=== PATIENT | female | born 1965 | race Two or more races ===

== ENCOUNTER → 2019-03-12 | Outpatient (CLI) | payer OTHER ==
--- NOTE | 2019-03-12 15:32 | RADIOLOGY REPORT (SQ) ---
EXAM DESCRIPTION: LUMBAR SPINE COMPLETE COMPLETED DATE/TIME: 03/12/2019 11:13 am REASON FOR STUDY: LOW BACK PAIN M54.5 LOW BACK PAIN COMPARISON: 03/12/2019 NUMBER OF VIEWS: Five views including obliques. TECHNIQUE: AP, lateral, oblique, and sacral radiographic images acquired of the lumbar spine. LIMITATIONS: None. FINDINGS: MINERALIZATION: Normal. SEGMENTATION: Normal. No transitional anatomy. ALIGNMENT: Normal. VERTEBRAE: Maintained height. No fracture or worrisome bone lesion. DISCS: Preserved height. No significant osteophytes or end plate irregularity. POSTERIOR ELEMENTS: Pedicles and facets are intact. No pars defect or posterior arch defects. HARDWARE: None in the spine. PARASPINAL SOFT TISSUES: Normal. PELVIS: Intact as visualized. No fractures or worrisome bone lesions. SI joints intact. OTHER: No other significant finding. IMPRESSION: NORMAL 5 VIEW LUMBAR SPINE. TECHNICAL DOCUMENTATION: JOB ID: [id number] [employer]- All Rights Reserved Reading location - IP/workstation name: [email or web address]
== END ==
LOC: OD 11:02
PROVIDERS: ATTEND Family Medicine
DX: M54.5 Low back pain (principal)
CPT/HCPCS: 72110

== ENCOUNTER → 2019-04-04 | Outpatient (CLI) | payer OTHER ==
--- NOTE | 2019-04-04 17:06 | WOMENS IMAGING REPORT ---
EXAM DESCRIPTION: RIGHT DIAGNOSTIC MAMMO W/CAD; U/S BREAST UNILAT LIMITED COMPLETED DATE/TIME: 04/04/2019 9:59 am; 04/04/2019 10:36 am REASON FOR STUDY: R92.2 RIGHT DX MAMMO; R92.2 RIGHT BREAST R92.2 INCONCLUSIVE MAMMOGRAM COMPARISON: 03/19/2019 EXAM PARAMETERS: True lateral and cone compression views. LIMITATIONS: None. FINDINGS: BREAST LATERALITY: right MASSES: No suspicious masses. CALCIFICATIONS: No new or suspicious calcifications. ARCHITECTURAL DISTORTION: None. DEVELOPING DENSITY: None. ASYMMETRY: None noted. OTHER: No other significant findings. Ultrasound of the breast demonstrates there are 2 cysts in the 9 o'clock position, the largest 13 x 1 0 mm. IMPRESSION: Benign findings. BREAST DENSITY: b. There are scattered areas of fibroglandular density. BIRAD: ASSESSMENT: 2 Benign findings. RECOMMENDATION: RECOMMENDED FOLLOW UP: Birads 1 or 2: The patient should resume routine screening . SPECIFIC INTERVENTION/IMAGING/CONSULTATION RECOMMENDED:No additional intervention/ imaging/consultati on needed at this time. COMMUNICATION:The imaging findings were not discussed with the patient. Her referring provider has be en notified of the findings. COMMENT: The patient has been notified of the results by letter per SA requirements. Additional no tification policies are in place for contacting patient with suspicious or incomplete findings. Quality ID #225: The [employer] recommends an annual screening mammogram for women aged 40 years or over. This facility utilizes a reminder system to ensure that all patients receive reminder letters, and/or direct phone calls for appointments. This includes reminders for routine scr eening mammograms, diagnostic mammograms, or other Breast Imaging Interventions when appropriate. Th is patient will be placed in the appropriate reminder system. TECHNICAL DOCUMENTATION: FINDING NUMBER: (1) ASSESSMENT: (1) JOB ID: [id number] [employer]- All Rights Reserved Reading location - IP/workstation name: [email or web address]
--- NOTE | 2019-04-04 17:06 | WOMENS IMAGING REPORT ---
EXAM DESCRIPTION: RIGHT DIAGNOSTIC MAMMO W/CAD; U/S BREAST UNILAT LIMITED COMPLETED DATE/TIME: 04/04/2019 9:59 am; 04/04/2019 10:36 am REASON FOR STUDY: R92.2 RIGHT DX MAMMO; R92.2 RIGHT BREAST R92.2 INCONCLUSIVE MAMMOGRAM COMPARISON: 03/19/2019 EXAM PARAMETERS: True lateral and cone compression views. LIMITATIONS: None. FINDINGS: BREAST LATERALITY: right MASSES: No suspicious masses. CALCIFICATIONS: No new or suspicious calcifications. ARCHITECTURAL DISTORTION: None. DEVELOPING DENSITY: None. ASYMMETRY: None noted. OTHER: No other significant findings. Ultrasound of the breast demonstrates there are 2 cysts in the 9 o'clock position, the largest 13 x 1 0 mm. IMPRESSION: Benign findings. BREAST DENSITY: b. There are scattered areas of fibroglandular density. BIRAD: ASSESSMENT: 2 Benign findings. RECOMMENDATION: RECOMMENDED FOLLOW UP: Birads 1 or 2: The patient should resume routine screening . SPECIFIC INTERVENTION/IMAGING/CONSULTATION RECOMMENDED:No additional intervention/ imaging/consultati on needed at this time. COMMUNICATION:The imaging findings were not discussed with the patient. Her referring provider has be en notified of the findings. COMMENT: The patient has been notified of the results by letter per SA requirements. Additional no tification policies are in place for contacting patient with suspicious or incomplete findings. Quality ID #225: The [employer] recommends an annual screening mammogram for women aged 40 years or over. This facility utilizes a reminder system to ensure that all patients receive reminder letters, and/or direct phone calls for appointments. This includes reminders for routine scr eening mammograms, diagnostic mammograms, or other Breast Imaging Interventions when appropriate. Th is patient will be placed in the appropriate reminder system. TECHNICAL DOCUMENTATION: FINDING NUMBER: (1) ASSESSMENT: (1) JOB ID: [id number] [employer] All Rights Reserved Reading location - IP/workstation name: [email or web address]
== END ==
LOC: WI 09:30
PROVIDERS: ATTEND Family Medicine
DX: N60.01 Solitary cyst of right breast (principal)
CPT/HCPCS: 76642

== ENCOUNTER → 2019-06-21 | Outpatient (CLI) | payer OTHER ==
--- NOTE | 2019-06-21 13:50 | RADIOLOGY REPORT (SQ) ---
EXAM DESCRIPTION: CHEST PA/LATERAL COMPLETED DATE/TIME: 06/21/2019 10:11 am REASON FOR STUDY: CHRONIC COUGH COMPARISON: 03/11/2016 EXAM PARAMETERS: NUMBER OF VIEWS: two views TECHNIQUE: Digital Frontal and Lateral radiographic views of the chest acquired. RADIATION DOSE: NA LIMITATIONS: none FINDINGS: LUNGS AND PLEURA: No opacities, masses or pneumothorax. No pleural effusion. MEDIASTINUM AND HILAR STRUCTURES: No masses or contour abnormalities. HEART AND VASCULAR STRUCTURES: Heart normal size. No evidence for failure. BONES: No acute findings. HARDWARE: None in the chest. OTHER: No other significant finding. IMPRESSION: NO SIGNIFICANT RADIOGRAPHIC FINDING IN THE CHEST. TECHNICAL DOCUMENTATION: JOB ID: [id number] [employer]- All Rights Reserved Reading location - IP/workstation name: [email or web address]
== END ==
LOC: OD 10:00
PROVIDERS: ATTEND Family Medicine
DX: R05 Cough (principal)
CPT/HCPCS: 71046

== ENCOUNTER → 2019-07-02 | Outpatient (CLI) | payer OTHER ==
--- NOTE | 2019-07-02 13:30 | RADIOLOGY REPORT (SQ) ---
EXAM DESCRIPTION: PARANASAL SINUSES COMPLETED DATE/TIME: 07/02/2019 1:05 pm REASON FOR STUDY: CHRONIC COUGH R05 COUGH COMPARISON: None. NUMBER OF VIEWS: Three views. TECHNIQUE: Images of the paranasal sinuses acquired. LIMITATIONS: None. FINDINGS: ORBITS: No fracture. No foreign body. SINUSES: No mucosal thickening. No air fluid levels. FACIAL BONES: No fracture. OTHER: No radiopaque foreign body over the facial soft tissues IMPRESSION: NO FOREIGN BODY OR FRACTURE. NO PLAIN RADIOGRAPHIC EVIDENCE FOR SINUS DISEASE. TECHNICAL DOCUMENTATION: JOB ID: [id number] [employer]- All Rights Reserved Reading location - IP/workstation name: [email or web address]
== END ==
LOC: OD 12:41
PROVIDERS: ATTEND Family Medicine
DX: R05 Cough (principal)
CPT/HCPCS: 70220

== ENCOUNTER 2019-10-22 06:59 | Day surgery (SDC) | payer OTHER ==
[2019-10-22] MEDS ORDERED: PROPOFOL INJ 200 MG/20 ML VIAL IV ONE (07:46)
[2019-10-22 09:08] VITALS: BP 120/76
--- NOTE | 2019-10-22 12:25 | Operative Report ---
Operative Report DATE OF SURGERY: 10/22/19 Operative Report: The risk, benefits and alternatives of the procedure including the risk of bleeding, perforation requiring surgery have been explained to the patient in detail and informed consent has been obtained. Patient is taken back to the endoscopy suite and placed in left, lateral decubital position. Timeout was called. Propofol medication is administered. Rectal examination is done which did not reveal any masses, tears or fissures. An Olympus videoscope was introduced into the patient's rectum. Scope was then carefully advanced all the way to the cecum. Cecum was identified by the usual anatomical landmarks including the ileocecal valve as well as the appendiceal office. Photodocumentation is obtained. Scope was then sequentially pulled back via the various segments of the colon including the ascending colon, back fracture, transverse colon, splenic flexure, descending colon and finally into the rectosigmoid portions of the colon. Retroflexion maneuvers performed. PREOPERATIVE DIAGNOSIS: Abdominal distention, change in bowel habits known history of diverticulosis POSTOPERATIVE DIAGNOSIS: Right side colon Inflammation status post biopsy. Diverticulosis without any evidence of diverticulitis. Internal hemorrhoids OPERATION: Colonoscopy with biopsy SURGEON: WILLIAN CALDWELL ANESTHESIA: LMAC TISSUE REMOVED OR ALTERED: As noted above. COMPLICATIONS: None. ESTIMATED BLOOD LOSS: None. INTRAOPERATIVE FINDINGS: As noted above. PROCEDURE: Patient tolerated the procedure well. No immediate postprocedure complications are noted. Patient is discharged in good condition. Discharge date 10/22/2019. Discharge diet: Regular. Discharge activity: Regular. 2 to 3-week follow-up to discuss findings. Patient is instructed to call the office or proceed to the emergency room should there be any further problems or questions. If negative can consider 10-year surveillance colonoscopy.
== END 2019-10-22 08:51 | disposition home or self-care (01) ==
LOC: END 06:59
PROVIDERS: ATTEND Internal Medicine Gastroenterology
DX: K52.9 Noninfective gastroenteritis and colitis, unspecified (principal); K57.30 Diverticulosis of large intestine without perforation or abscess without bleeding; K64.8 Other hemorrhoids; Z79.899 Other long term (current) drug therapy; E78.2 Mixed hyperlipidemia; Z79.51 Long term (current) use of inhaled steroids; I10 Essential (primary) hypertension
CPT/HCPCS: 45380; 88305 ×2; 00811; J2704; 811

== ENCOUNTER 2020-04-25 05:55 | Day surgery (SDC) | payer OTHER ==
[2020-04-22 14:15] LABS: HEMATOCRIT 38.1 % (36.0-47.0); MEAN CORPUSCULAR HEMOGLOBIN 29.8 pg (27.0-33.4); MEAN CORPUSCULAR HGB CONC 34.2 g/dL (32.0-36.0); MEAN CORPUSCULAR VOLUME 87 fl (80-97); PLATELET COUNT 238 10^3/uL (150-450); RED BLOOD COUNT 4.37 10^6/uL (3.72-5.28); RED CELL DISTRIBUTION WIDTH 12.7 % (11.5-14.0); WHITE BLOOD COUNT 4.1 10^3/uL (4.0-10.5)
[2020-04-22 14:39] LABS: APPEARANCE,URINE CLEAR; BILIRUBIN,URINE NEGATIVE (NEGATIVE); COLOR,URINE YELLOW; GLUCOSE, URINE NEGATIVE (NEGATIVE); KETONES,URINE NEGATIVE (NEGATIVE); LEUKOCYTE ESTERASE,URINE NEGATIVE (NEGATIVE); NITRITE,URINE NEGATIVE (NEGATIVE); PROTEIN,URINE NEGATIVE (NEGATIVE); URINE SPECIFIC GRAVITY 1.012; UROBILINOGEN,URINE NEGATIVE mg/dL (<2.0)
--- NOTE | 2020-04-23 09:37 | EKG REPORT ---
SEVERITY:- NORMAL ECG - SINUS BRADYCARDIA : Confirmed by: Brayan Basilio MD 23-Apr-2020 09:36:53
[~2020-04-25 05:55] MED LIST: KETOROLAC TROMETHAMINE 60 MG/2 ML SDV ONE; LACTATED RINGERS 1000 ML IV PRN
[2020-04-25] MEDS ORDERED: MIDAZOLAM 2 MG/2 ML INJ ONE (08:32)
[2020-04-25] MEDS ORDERED: FENTANYL CITRATE INJ/PF 100 MCG/2 ML AMPUL ONE (08:32)
[2020-04-25] MEDS ORDERED: PROPOFOL INJ 200 MG/20 ML VIAL IV ONE ×2 (08:33→09:18)
[2020-04-25] MEDS ORDERED: FENTANYL CITRATE INJ/PF 100 MCG/2 ML AMPUL IV PRN (09:00)
[2020-04-25] MEDS ORDERED: DIPHENHYDRAMINE HCL 50 MG/ML VIAL IV PRN (09:00)
[2020-04-25] MEDS ORDERED: PROMETHAZINE HCL INJ 25 MG/1 ML VIAL IV PRN (09:00)
[2020-04-25] MEDS ORDERED: MORPHINE SULFATE 10 MG/ML INJ IV PRN (09:00)
[2020-04-25] MEDS ORDERED: KETOROLAC TROMETHAMINE INJ/PF 30 MG/1 ML SDV IV PRN (09:02)
[2020-04-25] MEDS ORDERED: IBUPROFEN 800 MG TABLET PO PRN (09:02)
[2020-04-25] MEDS ORDERED: OXYCODONE-ACETAMINOPHEN 5-325 MG TABLET PO PRN ×2 (09:02)
[2020-04-25] MEDS ORDERED: RINGERS SOLUTION,LACTATED 1,000 ML IV PRN (09:02)
--- NOTE | 2020-04-25 09:06 | Operative Report ---
Operative Report DATE OF SURGERY: 04/25/20 PREOPERATIVE DIAGNOSIS: Thickened endometrium on ultrasound and postmenopausal bleeding POSTOPERATIVE DIAGNOSIS: Postmenopausal bleeding and uterine polyp OPERATION: Hysteroscopy D&C SURGEON: GILMER DAWSON ANESTHESIA: GA TISSUE REMOVED OR ALTERED: Uterine contents COMPLICATIONS: None ESTIMATED BLOOD LOSS: 10 cc INTRAOPERATIVE FINDINGS: Large uterine polyp noted PROCEDURE: Patient was taken the OR and placed in supine position. General anesthesia was induced. She was placed in the dorsolithotomy position using Morgan stirrups. A weighted speculum was placed in the vagina and the anterior lip cervix grasped with a tenaculum. Uterus sounded to 8 cm before and after the case. Cervix was dilated allowing hysteroscopy to be completed. A large polyp was seen in filling the uterine cavity. This was removed with polyp forceps. Repeat sound was 8 cm at the end of the case. Fractional D&C was completed with endocervical and endometrial curettings. All instruments were removed. She is placed back in supine position taken to recovery in stable condition.
--- NOTE | 2020-04-25 09:08 | Discharge Summary ---
Discharge Summary (SDC) - Discharge Final Diagnosis: Uterine polyp Date of Surgery: 04/25/20 Discharge Date: 04/25/20 Condition: Good Prescriptions: Ibuprofen [Motrin 800 mg Tablet] 800 mg PO Q8H PRN #20 tablet PRN Reason: Referrals: ANN MALLORY DO [Primary Care Provider] -
[2020-04-25 11:35] VITALS: BP 116/75
== END 2020-04-25 10:50 | disposition home or self-care (01) ==
LOC: OROUT 05:55
PROVIDERS: ATTEND Obstetrics & Gynecology
DX: N84.0 Polyp of corpus uteri (principal); N95.0 Postmenopausal bleeding; R32 Unspecified urinary incontinence; I10 Essential (primary) hypertension; Z03.818 Encounter for observation for suspected exposure to other biological agents ruled out; Z90.49 Acquired absence of other specified parts of digestive tract; Z96.0 Presence of urogenital implants; Z79.899 Other long term (current) drug therapy
CPT/HCPCS: 93005; 36415; 85027; 87635; 81001; 88305 ×2; 93010; 00952; 58558; J2250; J1885; J3010; J2704; C9803; 952

== ENCOUNTER 2020-07-01 15:35 | Emergency (ER) | payer OTHER ==
--- NOTE | 2020-07-01 16:18 | ER Document Report ---
ED Medical Screen (RME) - General Chief Complaint: Chest Pain > 30 Stated Complaint: chest pain Time Seen by Provider: 07/01/20 16:13 Primary Care Provider: ANN MALLORY DO [Primary Care Provider] - Follow up as needed Mode of Arrival: Ambulatory Information source: Patient Notes: 54-year-old female presents to ED for complaint of chest pain for 2 days. She states is the left upper chest. She states it does not radiate to her arm her chest or jaw or anywhere except for in the left upper chest. He states she has not done any heavy lifting any heavy exercises or anything that would cause pain in this area. She states when she has to take a deep breath it is painful but she has not had any cough or congestion. She states she does not smoke drink or use any illicit drugs. Chest pain protocol started. I have greeted and performed a rapid initial assessment of this patient. A comprehensive ED assessment and evaluation of the patient, analysis of test results and completion of medical decision making process will be conducted by an additional ED providers. TRAVEL OUTSIDE OF THE [place] 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 [employer] Lives with: Family Family history: Malignancy - Past Medical History Cardiac Medical History: Reports: Hx Hypertension Pulmonary Medical History: Reports: None Neurological Medical History: Reports: None Endocrine Medical History: Reports: None Renal/ Medical History: Reports: None Malignancy Medical History: Reports: None GI Medical History: Reports: None Musculoskeltal Medical History: Reports None Skin Medical History: Reports None Psychiatric Medical History: Reports: Hx Depression Traumatic Medical History: Reports: None Infectious Medical History: Reports: None Past Surgical History: Reports: Hx Abdominal Surgery, Hx Genitourinary Surgery - Bladder sling, Hx Hysterectomy - Immunizations Immunizations up to date: No Hx Diphtheria, Pertussis, Tetanus Vaccination: No Physical Exam - Vital signs Vitals: Temp Pulse Resp BP Pulse Ox 96.7 F L 62 16 127/75 H 97 07/01/20 15:41 07/01/20 15:41 07/01/20 15:41 07/01/20 15:41 07/01/20 15:41 Course - Vital Signs Vital signs: Temp Pulse Resp BP Pulse Ox 96.7 F L 62 16 127/75 H 97 07/01/20 15:41 07/01/20 15:41 07/01/20 15:41 07/01/20 15:41 07/01/20 15:41 Doctor's Discharge - Discharge Referrals: ANN MALLORY DO [Primary Care Provider] - Follow up as needed
--- NOTE | 2020-07-01 17:28 | RADIOLOGY REPORT (SQ) ---
EXAM DESCRIPTION: CHEST 2 VIEWS IMAGES COMPLETED DATE/TIME: 07/01/2020 4:57 pm REASON FOR STUDY: Chest pain x2 days COMPARISON: None. EXAM PARAMETERS: NUMBER OF VIEWS: two views TECHNIQUE: Digital Frontal and Lateral radiographic views of the chest acquired. RADIATION DOSE: NA LIMITATIONS: none FINDINGS: LUNGS AND PLEURA: No opacities, masses or pneumothorax. No pleural effusion. MEDIASTINUM AND HILAR STRUCTURES: No masses or contour abnormalities. HEART AND VASCULAR STRUCTURES: Heart normal size. No evidence for failure. BONES: No acute findings. HARDWARE: None in the chest. OTHER: No other significant finding. IMPRESSION: NO ACUTE RADIOGRAPHIC FINDING IN THE CHEST. TECHNICAL DOCUMENTATION: JOB ID: [id number] [employer] ([employer])- All Rights Reserved Reading location - IP/workstation name: [email or web address]
[2020-07-01 17:51] LABS: ABSOLUTE EOSINOPHILS # (AUTO) 0.6 10^3/uL (0.0-0.6); ABSOLUTE LYMPHOCYTES (AUTO) 2.1 10^3/uL (0.5-4.7); ABSOLUTE MONOCYTES (AUTO) 0.5 10^3/uL (0.1-1.4); ABSOLUTE NEUT (AUTO) 2.7 10^3/uL (1.7-8.2); BASOPHILS % (AUTO) 0.7 % (0-2); EOSINOPHILS % (AUTO) 10.3 % (0-6); HEMATOCRIT 37.2 % (36.0-47.0); HEMOGLOBIN 12.9 g/dL (12.0-15.5); LYMPHOCYTES % (AUTO) 35.2 % (13-45); MEAN CORPUSCULAR HGB CONC 34.7 g/dL (32.0-36.0); MEAN CORPUSCULAR VOLUME 86 fl (80-97); MONOCYTES % (AUTO) 8.7 % (3-13); PLATELET COUNT 225 10^3/uL (150-450); RED CELL DISTRIBUTION WIDTH 12.9 % (11.5-14.0); SEGMENTED NEUTROPHILS % (AUTO) 45.1 % (42-78); TOTAL CELLS COUNTED % (AUTO) 100 %; WHITE BLOOD COUNT 5.9 10^3/uL (4.0-10.5)
[2020-07-01 18:03] LABS: ALBUMIN 4.5 g/dL (3.5-5.0); ALKALINE PHOSPHATASE 65 U/L (38-126); ANION GAP 10 (5-19); ASPARTATE AMINO TRANSFERASE 35 U/L (14-36); BILIRUBIN,TOTAL 0.3 mg/dL (0.2-1.3); BLOOD UREA NITROGEN 19 mg/dL (7-20); CALCIUM 9.6 mg/dL (8.4-10.2); CARBON DIOXIDE 25 mmol/L (22-30); CHLORIDE 102 mmol/L (98-107); GLUCOSE 87 mg/dL (75-110); POTASSIUM 4.5 mmol/L (3.6-5.0); TOTAL PROTEIN 7.8 g/dL (6.3-8.2)
--- NOTE | 2020-07-01 23:44 | ER Document Report ---
ED General - General Chief Complaint: Chest Pain Stated Complaint: chest pain Time Seen by Provider: 07/01/20 16:13 Primary Care Provider: ANN MALLORY DO [Primary Care Provider] - Follow up in 1 week Mode of Arrival: Ambulatory Notes: Patient is a 54-year-old female who comes emergency department for chief complaint of pain along the left side of her chest and the upper part of her chest towards her shoulder, she states that pain is worse with cough and with movement. Pain is also specifically worse with a deep breath. She states she had a mild cough for about a week, she states she was COVID-19 tested already and this was negative. She denies sore throat, congestion, fever/chills, nausea/vomiting, dizziness. She denies severe pain. Past medical history of hypertension (on metoprolol), anxiety/depression. She denies smoking, asthma history. Patient denies lower extremity swelling, recent surgery, but she does report that she recently traveled here from [place] within the past 2 weeks. She denies personal or family history of blood clots. TRAVEL OUTSIDE OF THE [place] 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[employer] Lives with: Family Family History: Reviewed & Not Pertinent Patient has homicidal ideation: No - Past Medical History Cardiac Medical History: Reports: Hx Hypertension Pulmonary Medical History: Reports: None Neurological Medical History: Reports: None Endocrine Medical History: Reports: None Renal/ Medical History: Reports: None Malignancy Medical History: Reports: None GI Medical History: Reports: None Musculoskeletal Medical History: Reports None Skin Medical History: Reports None Psychiatric Medical History: Reports: Hx Depression Traumatic Medical History: Reports: None Infectious Medical History: Reports: None Past Surgical History: Reports: Hx Abdominal Surgery, Hx Genitourinary Surgery - Bladder sling, Hx Hysterectomy - Immunizations Immunizations up to date: No Hx Diphtheria, Pertussis, Tetanus Vaccination: No Review of Systems - Review of Systems Constitutional: No symptoms reported EENT: No symptoms reported Cardiovascular: See HPI Respiratory: See HPI Gastrointestinal: No symptoms reported Genitourinary: No symptoms reported Female Genitourinary: No symptoms reported Musculoskeletal: No symptoms reported Skin: No symptoms reported Hematologic/Lymphatic: No symptoms reported Neurological/Psychological: No symptoms reported Physical Exam - Vital signs Vitals: Temp Pulse Resp BP Pulse Ox 96.7 F L 62 16 127/75 H 97 07/01/20 15:41 07/01/20 15:41 07/01/20 15:41 07/01/20 15:41 07/01/20 15:41 - Notes Notes: GENERAL: Alert, interacts well. No acute distress. HEAD: Normocephalic, atraumatic. EYES: Pupils equal, round, and reactive to light. Extraocular movements intact. ENT: Oral mucosa moist, tongue midline. Oropharynx unremarkable. Airway patent. NECK: Full range of motion. Supple. Trachea midline. No lymphadenopathy. LUNGS: Clear to auscultation bilaterally, no wheezes, rales, or rhonchi. No respiratory distress. Very specific and reproducible chest wall tenderness in the left upper chest and the intercostal regions. No erythema, swelling, severe tenderness, crepitus, or signs of trauma. HEART: Borderline bradycardic, normal rhythm, no murmur ABDOMEN: Soft, non-tender. Non-distended. EXTREMITIES: Moves all 4 extremities spontaneously. No edema, normal radial and dorsalis pedis pulses bilaterally. No cyanosis. BACK: no cervical, thoracic, lumbar midline tenderness. No saddle anesthesia, normal distal neurovascular exam. Moves all extremities in full range of motion. NEUROLOGICAL: Alert and oriented x3. Normal speech. Cranial nerves II through XII grossly intact. Strength 5/5 in all extremities. PSYCH: Normal affect, normal mood. SKIN: Warm, dry, normal turgor. No rashes or lesions noted. Course - Re-evaluation Re-evalutation: Patient is alert and well-appearing. She does have pleuritic pain with deep breaths. She has very reproducible pain as well over the left upper chest wall which is worsened with movement including twisting and moving the left arm. She has no trauma, she has no severe tenderness, she has no other complaints on my evaluation. Vital signs unremarkable as the patient is borderline bradycardic with her beta-luciana. She is not hypoxic. CBC, chemistry unremarkable. Troponin negative despite multiple days of symptoms. EKG unremarkable. Chest x-ray unremarkable. Because of patient's recent travel with development of pleuritic pain I did perform a D-dimer and this was elevated. As result CTA was performed although this shows no acute findings including no pulmonary embolism. No pneumonia. Patient has had a mild cough for about a week. She had a recent negative COVID-19 test. There were incidental findings which I discussed in detail with patient. Discussed work-up with patient, discussed options. Patient will be treated with Decadron for pleuritic pain and chest wall pain, discussed additional measures at home, discussed close follow-up instructions, discussed return precautions in detail. Patient states appreciation and agreement. Stable and well-appearing at time of discharge. - Vital Signs Vital signs: Temp Pulse Resp BP Pulse Ox 98.2 F 53 L 19 147/103 H 100 07/01/20 22:32 07/01/20 22:32 07/02/20 01:59 07/02/20 02:00 07/02/20 01:59 - Laboratory Result Diagrams: 07/01/20 15:25 07/01/20 15:25 Laboratory results interpreted by me: 07/01/20 07/01/20 07/01/20 15:25 15:25 23:57 Eos % (Auto) 10.3 H D-Dimer 1.31 H ALT 37 H - EKG Interpretation by Me Additional EKG results interpreted by me: EKG shows sinus rhythm at a rate of 57, QTc 448, normal axis, no T wave inversions or ST segment changes in consecutive leads Discharge - Discharge Clinical Impression: Pleuritic pain, Chest wall pain Condition: Stable Disposition: HOME, SELF-CARE Additional Instructions: Your evaluation is most consistent with pleurisy (inflammation of the lining of the lungs) and chest wall pain. You were treated for this tonight, you can apply heat to your chest, take [id number] pain relief, symptoms should just gradually resolve. No concerning findings were seen on your work-up today in regards to your symptoms. Please follow-up with your primary care in regards to your CAT scan report, you need additional monitoring of the nodule in your lung to make sure this does not turn into cancer or any other concerning abnormality. Follow-up with your provider with this report. Return if you worsen including difficulty breathing, spiking fevers, passing out, severe worsening pain, or any other concerning symptoms. Referrals: ANN MALLORY DO [Primary Care Provider] - Follow up in 1 week
--- NOTE | 2020-07-01 23:49 | EKG REPORT ---
SEVERITY:- NORMAL ECG - SINUS RHYTHM : Confirmed by: Tiara Major MD 01-Jul-2020 23:48:52
--- NOTE | 2020-07-02 01:42 | RADIOLOGY REPORT (SQ) ---
CT angiogram chest with contrast on 07/02/2020 at 1:01 AM CLINICAL INDICATION: Pleuritic chest pain, elevated d-dimer TECHNIQUE: Multiple axial images are obtained throughout the chest following the administration of IV contrast. Computer generated 3D reconstructions/MIPS were performed. This exam was performed according to our departmental dose-optimization program, which includes automated exposure control, adjustment of the mA and/or kV according to patient size and/or use of iterative reconstruction technique. Total DLP is 667.69 mGy*cm. COMPARISON: None FINDINGS: There is colonic diverticulosis partially imaged in the upper abdomen. There is mild fatty infiltration of the liver. Limited visualized upper abdomen is otherwise unremarkable. There is mild elevation of the right hemidiaphragm. There is no pleural or pericardial effusion. There is no thoracic aortic aneurysm or dissection. There is no thoracic adenopathy. There are no filling defects within the pulmonary arteries to suggest pulmonary embolus. There is small partly solid and partly groundglass nodule in the inferior right upper lobe seen best on axial image 50 and coronal images 30 and 31. The soft tissue component of this measures 4 mm. The overall nodular opacity measures 1 cm. Initially would recommend CT follow-up at 3-6 months to confirm if this persists per Fleischner Society recommendations 2017. The lungs are otherwise clear. No bony abnormality is noted. IMPRESSION: 1. No evidence of pulmonary embolus. 2. Partly solid and partly groundglass nodule in the right upper lobe with follow-up recommended initially with CT of the chest in 3-6 months per [employer] society recommendations 2017. 3. Diverticulosis. 4. Mild fatty infiltration of the liver.
[2020-07-02] MEDS ORDERED: DEXAMETHASONE SOD PHOSPHATE INJ 4 MG/1 ML VIAL ONE (01:58)
[2020-07-02] MEDS: DEXAMETHASONE SOD PHOS INJ 10 MG/1 ML VIAL IV ONE ×2 (02:03→02:08)
[2020-07-02 02:10] VITALS: BP 147/103
== END 2020-07-02 02:12 | disposition home or self-care (01) ==
LOC: ER 15:35
DX: R07.81 Pleurodynia (principal); R07.89 Other chest pain; R05 Cough; R79.89 Other specified abnormal findings of blood chemistry; J45.909 Unspecified asthma, uncomplicated; K76.0 Fatty (change of) liver, not elsewhere classified; K57.90 Diverticulosis of intestine, part unspecified, without perforation or abscess without bleeding; I10 Essential (primary) hypertension
CPT/HCPCS: 93005; 99285; 96374; 36415; 85025; 80053; 84484; 85379; 71046; 71275; 93010; J1100

== ENCOUNTER → 2020-08-20 | Outpatient (CLI) | payer OTHER ==
--- NOTE | 2020-08-20 13:30 | RADIOLOGY REPORT (SQ) ---
EXAM DESCRIPTION: NM BONE SCAN LIMITED IMAGES COMPLETED DATE/TIME: 08/20/2020 12:12 pm REASON FOR STUDY: (R07.89)OTHER CHEST PAIN R07.89 OTHER CHEST PAIN COMPARISON: CT chest 07/02/2020 RADIONUCLIDE AND DOSE: 20 millicuries Tc99m MDP. The route of agent administration: Intravenous. ADDITIONAL DRUGS AND DOSES: None. TECHNIQUE: Routine delayed images at 3 hours post radionuclide injection acquired of the thorax. LIMITATIONS: None. FINDINGS: BONES: There is mild increased uptake at the sternomanubrial joint. This correlates with mild degenerative joint changes seen on the chest CT. No other abnormal skeletal uptake is seen. KIDNEYS: Cannot exclude right hydronephrosis. OTHER: No other significant finding. IMPRESSION: There is mild uptake at the sternomanubrial joint as described. Cannot exclude right hy dronephrosis. COMMENT: Quality measure 147: Current bone scan is compared with any available plain radiographs, p rior bone scans, and CT/MRI. TECHNICAL DOCUMENTATION: JOB ID: [id number] 2010 [employer]- All Rights Reserved Reading location - IP/workstation name: [email or web address]
--- NOTE | 2020-08-20 14:00 | RADIOLOGY REPORT (SQ) ---
EXAM DESCRIPTION: CT CHEST WITHOUT IMAGES COMPLETED DATE/TIME: 08/20/2020 12:27 pm REASON FOR STUDY: R07.89 other chest pain (no auth needed) R07.89 OTHER CHEST PAIN COMPARISON: CTA chest 07/02/2020 bone scan of the thorax 08/20/2020 TECHNIQUE: CT scan performed of the chest without intravenous contrast. Images reviewed with lung, soft tissue and bone windows. Reconstructed coronal and sagittal MPR images reviewed. All images st ored on PACS. All CT scanners at this facility use dose modulation, iterative reconstruction, and/or weight based d osing when appropriate to reduce radiation dose to as low as reasonably achievable (ALARA). [facility]: Dose Right [facility]: CareDose [facility]: Dose Right [facility]: Teradose 4D [facility]: Smart [employer] RADIATION DOSE: CT Rad equipment meets quality standard of care and radiation dose reduction techniq ues were employed. CTDIvol: 11.4 mGy. DLP: 491 mGy-cm. mGy. LIMITATIONS: No technical limitations. FINDINGS: LUNGS AND PLEURA: Subsolid 1 cm nodule in the right upper lobe posteriorly in a subpleural location. This is stable. HILAR AND MEDIASTINAL STRUCTURES: No identified masses or abnormal nodes. No obvious aneurysm. HEART AND VASCULAR STRUCTURES: No aneurysm. No pericardial effusion. UPPER ABDOMEN: No significant findings. Limited exam. THYROID AND OTHER SOFT TISSUES: No masses. No adenopathy. BONES: There is mild degenerative joint change in the sternomanubrial joint. HARDWARE: None in the chest. OTHER: No other significant findings. IMPRESSION: 1. Stable sub solid 1 cm nodule in the right upper lobe as described. Follow-up as bel ow. 2. 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 COMMENT: Fleischner Criteria for Ground Glass Nodules: >6-8 mm part solid single nodule: CT 3-6 mo to confirm persistence, if unchanged solid component lisa ins < [address] should be performed for 5 yrs. TECHNICAL DOCUMENTATION: JOB ID: [id number] Quality ID # [id number]: Final reports with documentation of one or more dose reduction techniques (e.g., Au tomated exposure control, adjustment of the mA and/or kV according to patient size, use of iterative reconstruction technique) 2010 [employer]- All Rights Reserved Reading location - IP/workstation name: [email or web address]
== END ==
LOC: RAD 08:57
PROVIDERS: ATTEND Family Medicine
DX: R07.89 Other chest pain (principal); R91.1 Solitary pulmonary nodule; M19.09 Primary osteoarthritis, other specified site
CPT/HCPCS: 78305; 71250; A9503; Q9969